=== PATIENT | male | born 1945 | race Caucasian/White ===

== ENCOUNTER 2019-03-24 20:50 | Observation (INO) | payer MEDICARE, BC ==
[2019-03-24 21:08] LABS: ABSOLUTE BASOPHILS # (AUTO) 0.1 10^3/uL (0.0-0.2); ABSOLUTE EOSINOPHILS # (AUTO) 0.1 10^3/uL (0.0-0.6); ABSOLUTE LYMPHOCYTES (AUTO) 3.2 10^3/uL (0.5-4.7); ABSOLUTE MONOCYTES (AUTO) 0.4 10^3/uL (0.1-1.4); ABSOLUTE NEUT (AUTO) 4.1 10^3/uL (1.7-8.2); BASOPHILS % (AUTO) 0.7 % (0-2); EOSINOPHILS % (AUTO) 1.7 % (0-6); HEMATOCRIT 40.8 % (37.9-51.0); HEMOGLOBIN 14.2 g/dL (13.5-17.0); LYMPHOCYTES % (AUTO) 40.5 % (13-45); MEAN CORPUSCULAR HEMOGLOBIN 33.1 pg (27.0-33.4); MEAN CORPUSCULAR HGB CONC 34.8 g/dL (32.0-36.0); MEAN CORPUSCULAR VOLUME 95 fl (80-97); MONOCYTES % (AUTO) 4.8 % (3-13); PLATELET COUNT 291 10^3/uL (150-450); RED BLOOD COUNT 4.29 10^6/uL (4.35-5.55); RED CELL DISTRIBUTION WIDTH 14.3 % (11.5-14.0); SEGMENTED NEUTROPHILS % (AUTO) 52.3 % (42-78); TOTAL CELLS COUNTED % (AUTO) 100 %; WHITE BLOOD COUNT 7.8 10^3/uL (4.0-10.5)
[2019-03-24] MEDS ORDERED: ASPIRIN 81 MG TABLET, CHEWABLE PO ONE (21:12)
--- NOTE | 2019-03-24 21:15 | ER Document Report ---
ED General - General Stated Complaint: CHEST PAIN Time Seen by Provider: 03/24/19 20:58 TRAVEL OUTSIDE OF THE [place] IN LAST 30 DAYS: No - HPI Notes: Patient is a 73-year-old male that presents to the emergency department for chief complaint of chest pain that began about an hour prior to arrival in the ED. Patient states he was sitting down while eating dinner and had sudden onset of a substernal chest pain. He states that it lasted for about 30 minutes total. It radiated up into his left shoulder. He cannot describe the sensation further than it felt sore. He denied any aggravating or relieving factors. He denied associated diaphoresis, nausea/vomiting, and shortness of breath. 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 He has been compliant with medications and denies any missed dosing. Patient states that he is currently feeling back to normal and has no pain. Past Medical History: CAD, PE, DVT, history of thrombocytosis with splenomegaly Past Surgical History: CABG x4 Social History: Denies drug alcohol and tobacco use Family History: Reviewed and noncontributory for presenting illness Allergies: Reviewed, see documented allergy list. REVIEW OF SYSTEMS: CONSTITUTIONAL : No fever No chills No diaphoresis No recent illness EENT: No vision changes No congestion No sore throat CARDIOVASCULAR: chest pain No palpitations RESPIRATORY: No shortness of breath No cough No difficulty breathing GASTROINTESTINAL: No abdominal pain No nausea No vomiting No diarrhea GENITOURINARY: No dysuria No hematuria No difficulty urinating MUSCULOSKELETAL: No back pain Left shoulder pain No arm pain SKIN: No rashes No lesions LYMPHATIC: No swollen, enlarged glands. NEUROLOGICAL: No lightheadedness No headache No weakness No paresthesias PSYCHIATRIC: No anxiety No depression PHYSICAL EXAMINATION: Vital signs reviewed, nursing noted reviewed. GENERAL: Well-appearing, well-nourished and in no acute distress. HEAD: Atraumatic, normocephalic. EYES: Eyes appear normal, extraocular movements intact, sclera anicteric, conjunctiva are normal. ENT: nares patent, oropharynx clear without exudates. Moist mucous membranes. NECK: Normal range of motion, supple without lymphadenopathy LUNGS: No anterior chest wall tenderness breath sounds clear to auscultation bilaterally and equal. No wheezes rales or rhonchi. HEART: Regular rate and rhythm without murmurs ABDOMEN: Soft, nontender, normoactive bowel sounds. No rebound, guarding, or rigidity. No masses appreciated. EXTREMITIES: Nontender, good range of motion, no pitting or edema. NEUROLOGICAL: No focal neurological deficits. Moves all extremities spontaneously Motor and sensory grossly intact on exam. PSYCH: Normal mood, normal affect. SKIN: Warm, Dry, normal turgor, no rashes or lesions noted on exposed skin - Related Data Allergies/Adverse Reactions: acetaminophen [From Vicodin] Allergy (Verified 04/10/15 19:05) codeine Allergy (Verified 03/24/19 21:35) hydrocodone bitartrate [From Vicodin] Allergy (Verified 04/10/15 19:05) Past Medical History - Social History Smoking Status: Never Smoker Family History: Reviewed & Not Pertinent - Past Medical History Cardiac Medical History: Reports: Hx Hypercholesterolemia, Hx Hypertension Past Surgical History: Reports: Hx Open Heart Surgery, Hx Orthopedic Surgery - Immunizations Hx Diphtheria, Pertussis, Tetanus Vaccination: Yes Physical Exam - Vital signs Vitals: Resp BP Pulse Ox 13 156/84 H 95 03/24/19 20:56 03/24/19 20:56 03/24/19 20:56 Course - Re-evaluation Re-evalutation: 03/24/19 21:14 Vitals reviewed. Nursing notes reviewed. Patient is well-appearing and currently asymptomatic. He was ordered aspirin for his complaint of chest pain. Patient has been placed on telemetry monitoring. EKG shows no STEMI. 03/24/19 22:02 Patient's blood work is unremarkable. His initial troponin is negative. Chest x-ray shows no cardiopulmonary disease. Patient has remained asymptomatic while in the emergency room and has not had recurrence of his chest pain or left shoulder pain. His heart score is 5. Patient will be admitted to the hospital for further cardiac evaluation. Care discussed with admitting physician. Laboratory 03/24/19 03/24/19 03/24/19 20:25 20:25 20:25 WBC 7.8 RBC 4.29 L Hgb 14.2 Hct 40.8 MCV 95 MCH 33.1 MCHC 34.8 RDW 14.3 H Plt Count 291 Seg Neutrophils % 52.3 Lymphocytes % 40.5 Monocytes % 4.8 Eosinophils % 1.7 Basophils % 0.7 Absolute Neutrophils 4.1 Absolute Lymphocytes 3.2 Absolute Monocytes 0.4 Absolute Eosinophils 0.1 Absolute Basophils 0.1 Sodium 140.9 Potassium 3.7 Chloride 103 Carbon Dioxide 28 Anion Gap 10 BUN 13 Creatinine 0.74 Est GFR ( Amer) > 60 Est GFR (Non-Af Amer) > 60 Glucose 138 H Calcium 9.2 Total Bilirubin 1.7 H Direct Bilirubin 0.3 Neonat Total Bilirubin Not Reportable Neonat Direct Bilirubin Not Reportable Neonat Indirect Bili Not Reportable AST 29 ALT 24 Alkaline Phosphatase 56 Troponin I < 0.012 Total Protein 6.7 Albumin 4.5 Chest X-Ray 03/24/19 20:59 IMPRESSION: 1. No acute pulmonary findings. 2. Previous sternotomy. - Vital Signs Vital signs: Temp Pulse Resp BP Pulse Ox 98.4 F 11 L 156/82 H 95 03/24/19 20:59 03/24/19 21:01 03/24/19 21:02 03/24/19 21:02 - Laboratory Result Diagrams: 03/24/19 20:25 03/24/19 20:25 Laboratory results interpreted by me: 03/24/19 03/24/19 20:25 20:25 RBC 4.29 L RDW 14.3 H Glucose 138 H Total Bilirubin 1.7 H - EKG Interpretation by Me Additional EKG results interpreted by me: 03/24/19 21:15 Interpreted by myself 2052: Normal sinus rhythm, rate 77, normal axis, PAC, no STEMI Discharge - Discharge Clinical Impression: Chest pain Qualifiers: Chest pain type: unspecified Qualified Code(s): R07.9 - Chest pain, unspecified Condition: Stable Disposition: ADMITTED OBSERVATION Admitting Provider: Rubén (Hospitalist) Unit Admitted: Telemetry
[2019-03-24 21:17] LABS: ALANINE AMINOTRANSFERASE 24 U/L (21-72); ALBUMIN 4.5 g/dL (3.5-5.0); ALKALINE PHOSPHATASE 56 U/L (38-126); ANION GAP 10 (5-19); ASPARTATE AMINO TRANSFERASE 29 U/L (17-59); BILIRUBIN,DIRECT 0.3 mg/dL (0.0-0.4); BILIRUBIN,TOTAL 1.7 mg/dL (0.2-1.3); BLOOD UREA NITROGEN 13 mg/dL (7-20); CALCIUM 9.2 mg/dL (8.4-10.2); CARBON DIOXIDE 28 mmol/L (22-30); CHLORIDE 103 mmol/L (98-107); GLUCOSE 138 mg/dL (75-110); POTASSIUM 3.7 mmol/L (3.6-5.0); TOTAL PROTEIN 6.7 g/dL (6.3-8.2)
--- NOTE | 2019-03-24 21:49 | RADIOLOGY REPORT (SQ) ---
EXAM DESCRIPTION: [facility]: XR CHEST 1 VIEW CLINICAL HISTORY: 73 years Male, CHEST PAIN COMPARISON: None. FINDINGS: Lungs are clear, with no focal infiltrate, pneumothorax, or pleural effusion. Sternal wires are noted. There is mild aortic calcification. Heart size is normal. Bony structures are unremarkable. IMPRESSION: 1. No acute pulmonary findings. 2. Previous sternotomy.
--- NOTE | 2019-03-24 23:20 | PDOC H&P ---
History of Present Illness Admission Date/PCP: 03/24/19 22:11 No local PCP Patient complains of: Chest pain History of Present Illness: BRANDI CASTELLON is a 73 year old male who presents the emergency room with acute onset of chest pain approximately 1 hour prior to his arrival. He admits that just before supper tonight he developed a mild to moderate discomfort that he "felt was indigestion" in his anterior central chest, lasting for approximately 30 minutes, without radiation and resolving spontaneously. A few minutes later he developed a 2 to 3-minute episode of vague discomfort in his left arm and at that point decided to come to the emergency room. He denies other accompanying or associated symptoms. He denies prior similar episodes and has not identified any aggravating or ameliorating factors for his chest pain. In the emergency room he was found to have an EKG and initial cardiac enzymes negative for acute myocardial ischemia or injury. He was subsequently admitted to observation status for further evaluation. Past Medical History Cardiac Medical History: Reports: Atrial Fibrillation, Coronary Artery Disease, Hyperlipidema, Hypertension, Pulmonary Embolism Denies: Congestive Heart Failure, Peripheral Vascular Disease Pulmonary Medical History: Denies: Asthma, Chronic Obstructive Pulmonary Disease (COPD) EENT Medical History: Denies: Cataracts, Ears - Hearing aids Neurological Medical History: Denies: Hemorrhagic CVA, Ischemic CVA, Multiple Sclerosis, Seizures Endocrine Medical History: Denies: Diabetes Mellitus Type 1, Diabetes Mellitus Type 2, Hyperthyroidism, Hypothyroidism Renal/ Medical History: Denies: Chronic Kidney Disease, Nephrolithiasis Malignancy Medical History: Reports: None GI Medical History: Denies: Cirrhosis, Crohn's Disease, Gastroesophageal Reflux Disease, Hepatitis, Hiatal Hernia, Ulcerative Colitis Musculoskeltal Medical History: Denies: Arthritis, Fibromyalgia Skin Medical History: Denies: Eczema, Psoriasis Psychiatric Medical History: Denies: Alcohol Dependency, Substance Abuse, Tobacco Dependency Traumatic Medical History: Reports: None Hematology: Reports: Other - Hereditary thrombocytosis with associated coagulopathy Denies: Anemia, Bleeding Tendencies Infectious Medical History: Reports: None Past Surgical History Past Surgical History: Reports: Cardiac Catheterization, Coronary Artery Bypass Graft - X4 grafts, Orthopedic Surgery - Bilateral knee meniscus surgery, bilateral rotator cuff surgeries (Left X2), Other - Cardiac ablation surgery for atrial fibrillation/tachyarrhythmia Social History Information Source: Patient Lives with: Spouse/Significant other Smoking Status: Never Smoker Frequency of Alcohol Use: Social Amount of Alcoholic Beverages Per Day: 1 Scotch Hx Recreational Drug Use: No Drugs: None Hx Prescription Drug Abuse: No - Advance Directive Resuscitation Status: Full Code Surrogate healthcare decision maker:: Pati Castellon Family History Family History: Malignancy, Other - Amyloidosis. denies: CAD, DM, Hypertension Parental Family History Reviewed: Yes Children Family History Reviewed: No Sibling(s) Family History Reviewed.: Yes Medication/Allergy Home Medications: Amlodipine Besylate [Norvasc 5 mg Tablet] 5 mg PO DAILY 04/10/15 Atorvastatin Calcium 40 mg PO DAILY 04/10/15 Hydrochlorothiazide 25 mg PO DAILY 04/10/15 Irbesartan [Avapro] 300 mg PO DAILY 04/10/15 Metoprolol Succinate [Toprol Xl] 50 mg PO BID 04/10/15 Rivaroxaban [Xarelto] 20 mg PO DAILY 04/10/15 Ondansetron [Zofran Odt 4 mg Tablet] 1 - 2 tab PO Q4H PRN #15 tab.rapdis 04/11/15 Allergies/Adverse Reactions: acetaminophen [From Vicodin] Allergy (Verified 04/10/15 19:05) codeine Allergy (Verified 03/24/19 21:35) hydrocodone bitartrate [From Vicodin] Allergy (Verified 04/10/15 19:05) Review of Systems Constitutional: ABSENT: chills, fever(s) Eyes: ABSENT: visual disturbances, other - Eye pain Ears: ABSENT: hearing changes, other - Ear pain Nose, Mouth, and Throat: ABSENT: mouth pain, sore throat Cardiovascular: PRESENT: as per HPI, chest pain. ABSENT: dyspnea on exertion, edema, orthropnea, palpitations Respiratory: ABSENT: cough, dyspnea Gastrointestinal: ABSENT: abdominal pain, constipation, diarrhea, nausea, vomiting Genitourinary: ABSENT: dysuria, hematuria Musculoskeletal: PRESENT: as per HPI, other - Vague pain in left upper extremit y. ABSENT: back pain, joint swelling, muscle weakness Integumentary: ABSENT: pruritus, rash Neurological: ABSENT: confusion, convulsions, focal weakness, memory loss, syncope Psychiatric: ABSENT: anxiety, depression Endocrine: ABSENT: cold intolerance, heat intolerance Hematologic/Lymphatic: ABSENT: easy bleeding, easy bruising Physical Exam Vital Signs: Temp Pulse Resp BP Pulse Ox 98.4 F 11 L 156/82 H 95 03/24/19 20:59 03/24/19 21:01 03/24/19 21:02 03/24/19 21:02 Intake & Output 03/22/19 03/23/19 03/24/19 23:59 23:59 23:59 Weight 72.8 kg General appearance: PRESENT: no acute distress, cooperative Head exam: PRESENT: atraumatic, normocephalic Eye exam: PRESENT: conjunctiva pink. ABSENT: conjunctival injection, scleral icterus Ear exam: PRESENT: normal external ear exam. ABSENT: bleeding, drainage Mouth exam: PRESENT: dry mucosa, neck supple Neck exam: ABSENT: JVD, thyromegaly, tracheal deviation Respiratory exam: PRESENT: clear to auscultation redd, symmetrical, unlabored Cardiovascular exam: PRESENT: RRR. ABSENT: clicks, gallop, rubs Pulses: PRESENT: normal radial pulses, normal dorsalis pedis pul Vascular exam: PRESENT: normal capillary refill. ABSENT: pallor GI/Abdominal exam: PRESENT: normal bowel sounds, organolmegaly - Splenomegaly noted, soft Rectal exam: PRESENT: deferred Extremities exam: ABSENT: joint swelling, pedal edema, tenderness Musculoskeletal exam: PRESENT: full ROM, normal inspection Neurological exam: PRESENT: alert, awake, oriented to person, oriented to place, oriented to time, oriented to situation, CN II-XII grossly intact. ABSENT: motor sensory deficit Psychiatric exam: PRESENT: appropriate affect, normal mood Skin exam: PRESENT: dry, intact, warm. ABSENT: jaundice, rash, urticaria Results Laboratory Results: 03/24/19 20:25 03/24/19 20:25 03/24/19 03/24/19 20:25 20:25 WBC 7.8 RBC 4.29 L Hgb 14.2 Hct 40.8 MCV 95 MCH 33.1 MCHC 34.8 RDW 14.3 H Plt Count 291 Seg Neutrophils % 52.3 Lymphocytes % 40.5 Monocytes % 4.8 Eosinophils % 1.7 Basophils % 0.7 Absolute Neutrophils 4.1 Absolute Lymphocytes 3.2 Absolute Monocytes 0.4 Absolute Eosinophils 0.1 Absolute Basophils 0.1 Sodium 140.9 Potassium 3.7 Chloride 103 Carbon Dioxide 28 Anion Gap 10 BUN 13 Creatinine 0.74 Est GFR ( Amer) > 60 Est GFR (Non-Af Amer) > 60 Glucose 138 H Calcium 9.2 Total Bilirubin 1.7 H AST 29 ALT 24 Alkaline Phosphatase 56 Total Protein 6.7 Albumin 4.5 03/24/19 20:25 Troponin I < 0.012 Impressions: Chest X-Ray 03/24/19 20:59 IMPRESSION: 1. No acute pulmonary findings. 2. Previous sternotomy. Assessment and Plan - Diagnosis (1) Chest pain Qualifiers: Chest pain type: unspecified Qualified Code(s): R07.9 - Chest pain, uns pecified Is this a current diagnosis for this admission?: Yes Plan: Patient will use morphine sulfate 2 to 4 mg IV every 2 hours on a as needed basis for chest pain that does not respond to sublingual nitroglycerin. He will receive sublingual nitroglycerin 0.4 mg every 5 minutes as needed chest pain up to 3 doses as initial treatment of chest pain. Serial cardiac enzymes and EKGs will be performed. (2) CAD (coronary artery disease), [place] coronary artery Qualifiers: [place] vs. transplanted heart: [place] heart Associated angina: angina presence unspecified Qualified Code(s): I25.10 - Atherosclerotic heart disease of [place] coronary artery without angina pectoris Is this a current diagnosis for this admission?: Yes Plan: Patient will be continued on his usual medications for his coronary artery disease during his observation course. Changes will be made only if absolutely necessary. (3) Familial thrombocytosis Is this a current diagnosis for this admission?: Yes Plan: Patient will be continued on his anticoagulant therapy utilizing Xarelto. No further evaluation and or intervention is planned. (4) Chronic anticoagulation Is this a current diagnosis for this admission?: Yes Plan: Patient with continued on his chronic anticoagulation therapy with Xarelto. No further evaluation is planned. - Time Time Spent with patient: 25-34 minutes Medications reviewed and adjusted accordingly: Yes Anticipated discharge: Home - Inpatient Certification Based on my medical assessment, after consideration of the patient's c omorbidities, presenting symptoms, or acuity I expect that the services needed warrant INPATIENT care.: No I certify that my determination is in accordance with my understanding of Medicare's requirements for reasonable and necessary INPATIENT services [42 CFR 412.3e].: No Medical Necessity: Need Close Monitoring Due to Risk of Patient Decompensation, Need For Continuous Telemetry Monitoring, Need for Pain Control
--- NOTE | 2019-03-24 23:46 | EKG REPORT ---
SEVERITY:- NORMAL ECG - SINUS RHYTHM : Confirmed by: Lisa Lal 24-Mar-2019 23:46:10
[2019-03-25 00:12] LABS: FREE T3 3.01 pg/mL (2.77-5.27); FREE T4 (FREE THYROXINE) 1.11 ng/dL (0.78-2.19)
[2019-03-25 03:13] LABS: ABSOLUTE EOSINOPHILS # (AUTO) 0.1 10^3/uL (0.0-0.6); ABSOLUTE LYMPHOCYTES (AUTO) 3.3 10^3/uL (0.5-4.7); ABSOLUTE MONOCYTES (AUTO) 0.4 10^3/uL (0.1-1.4); ABSOLUTE NEUT (AUTO) 3.5 10^3/uL (1.7-8.2); BASOPHILS % (AUTO) 0.6 % (0-2); EOSINOPHILS % (AUTO) 1.9 % (0-6); HEMATOCRIT 39.1 % (37.9-51.0); HEMOGLOBIN 13.5 g/dL (13.5-17.0); LYMPHOCYTES % (AUTO) 44.7 % (13-45); MEAN CORPUSCULAR HEMOGLOBIN 32.8 pg (27.0-33.4); MEAN CORPUSCULAR HGB CONC 34.6 g/dL (32.0-36.0); MEAN CORPUSCULAR VOLUME 95 fl (80-97); PLATELET COUNT 242 10^3/uL (150-450); RED BLOOD COUNT 4.12 10^6/uL (4.35-5.55); RED CELL DISTRIBUTION WIDTH 14.2 % (11.5-14.0); SEGMENTED NEUTROPHILS % (AUTO) 46.8 % (42-78); TOTAL CELLS COUNTED % (AUTO) 100 %; WHITE BLOOD COUNT 7.4 10^3/uL (4.0-10.5)
[2019-03-25 03:34] LABS: ALANINE AMINOTRANSFERASE 25 U/L (21-72); ALBUMIN 3.8 g/dL (3.5-5.0); ALKALINE PHOSPHATASE 50 U/L (38-126); ANION GAP 8 (5-19); ASPARTATE AMINO TRANSFERASE 28 U/L (17-59); BILIRUBIN,DIRECT 0.1 mg/dL (0.0-0.4); BILIRUBIN,TOTAL 1.2 mg/dL (0.2-1.3); BLOOD UREA NITROGEN 15 mg/dL (7-20); CALCIUM 8.7 mg/dL (8.4-10.2); CARBON DIOXIDE 27 mmol/L (22-30); CHLORIDE 107 mmol/L (98-107); CHOLESTEROL 98.38 mg/dL (0-200); CREATINE KINASE 39 U/L (55-170); GLUCOSE 101 mg/dL (75-110); TOTAL PROTEIN 5.9 g/dL (6.3-8.2); TRIGLYCERIDES 66 mg/dL (<150)
[2019-03-25 03:45] LABS: CREATINE KINASE MB 0.55 ng/mL (<4.55); POTASSIUM 3.6 mmol/L (3.6-5.0); TROPONIN I < 0.012 ng/mL
[2019-03-25 03:46] LABS: DIRECT LDL 58 mg/dL (<100)
[2019-03-25] MEDS ORDERED: HYDROCHLOROTHIAZIDE 12.5 MG TABLET PO SCH (08:00)
[2019-03-25] MEDS ORDERED: METOPROLOL SUCCINATE 50 MG TAB.SR.24H PO SCH (10:00)
[2019-03-25] MEDS ORDERED: AMLODIPINE BESYLATE 5 MG TABLET PO SCH (10:00)
[2019-03-25] MEDS ORDERED: LOSARTAN POTASSIUM 50 MG TABLET PO SCH ×2 (10:00→13:00)
[2019-03-25 10:17] LABS: CREATINE KINASE MB 0.55 ng/mL (<4.55)
[2019-03-25 10:25] LABS: TROPONIN I < 0.012 ng/mL
[2019-03-25] MEDS ORDERED: (PENDING PHARMACY ID) (Glucosamine Sulfate Dipot Chlr [Glucosamine] 1,500 MG) PO SCH (12:30)
[2019-03-25] MEDS ORDERED: (PENDING PHARMACY ID) (Irbesartan [Irbesartan] 300 MG) PO SCH (12:30)
[2019-03-25] MEDS ORDERED: TAMSULOSIN HCL 0.4 MG CAP.SR.24H PO SCH (13:00)
[2019-03-25] MEDS ORDERED: SPIRONOLACTONE 25 MG TABLET PO SCH (13:00)
[2019-03-25] MEDS ORDERED: METOPROLOL TARTRATE 25 MG TABLET PO SCH (13:00)
[2019-03-25 13:29] VITALS: BP 144/74
[2019-03-25] MEDS ORDERED: AMLODIPINE BESYLATE 2.5 MG TABLET PO SCH (14:00)
[2019-03-25] MEDS ORDERED: HYDROXYUREA 500 MG CAPSULE PO SCH (14:00)
[2019-03-25] MEDS ORDERED: ASCORBIC ACID 500 MG TABLET PO SCH (14:00)
[2019-03-25] MEDS ORDERED: RIVAROXABAN 10 MG TABLET PO SCH (17:00)
--- NOTE | 2019-03-25 19:29 | ADVANCED CARE ---
- Diagnosis (1) Chest pain Diagnosis Current: Yes (2) CAD (coronary artery disease), [place] coronary artery Diagnosis Current: Yes (3) Familial thrombocytosis Diagnosis Current: Yes (4) Chronic anticoagulation Diagnosis Current: Yes Attendance: The patient, his Pati Taylor and myself. Resuscitation Status: Full Code Discussion: After brief discussion the patient has determined that he wishes to be full code resuscitation status for this hospital stay. Additionally he has named his Pati Taylor as his designated surrogate medical decision maker. Care Planning Goals: 1. Patient will remain full CODE STATUS for the current admission. 2. Pati Taylor is the patient's designated surrogate medical decision- maker. Document(s) Completed: The following entries will be made into the patient's permanent medical record, current medical record and current orders via EMR entry: 1. Patient will remain full CODE STATUS for the current admission. 2. Pati Taylor is the patient's designated surrogate medical decision- maker. Time Spent: 15 minutes
--- NOTE | 2019-03-25 20:33 | EKG REPORT ---
SEVERITY:- NORMAL ECG - SINUS RHYTHM : Confirmed by: Lisa Lal 25-Mar-2019 20:32:10
[2019-03-25] MEDS ORDERED: FINASTERIDE 5 MG TABLET PO SCH (22:00)
[2019-03-25] MEDS ORDERED: (PENDING PHARMACY ID) (Pravastatin Sodium [Pravachol] 40 MG) PO SCH (22:00)
[2019-03-25] MEDS ORDERED: ATORVASTATIN CALCIUM 10 MG TABLET PO SCH (22:00)
[2019-03-25] MEDS ORDERED: ATORVASTATIN CALCIUM 40 MG TABLET PO SCH (22:00)
[2019-03-26] MEDS ORDERED: VIT E AC PO SCH (10:00)
[2019-03-26] MEDS ORDERED: MAGNESIUM AMINO ACID CHELATE PO SCH (10:00)
[2019-03-26] MEDS ORDERED: VIT BCOMP PO SCH (10:00)
[2019-03-26] MEDS ORDERED: [UNRECOGNIZED DRUG - OTHER] PO SCH (10:00)
--- NOTE | 2019-03-26 18:16 | PDOC DISCHARGE SUMMARY ---
General - Admit/Disc Date/PCP Admission Date/Primary Care Provider: 03/24/19 22:11 Discharge Date: 03/25/19 - Additional Information Resuscitation Status: Full Code Discharge Diet: As Tolerated, Cardiac Home Medications: Amlodipine Besylate [Norvasc 2.5 mg Tablet] 2.5 mg PO QAM 03/25/19 Ascorbic Acid [C-500] 500 mg PO QAM 03/25/19 Calcium Carbonate/Vitamin D3 [Calcium 500 mg Chewable Tablet] 1 each PO DAILY 03/25/19 Fe Fum/Vit E AC/Vit Bcomp&C/Mn [B-50 Formula Tablet] 1 each PO QAM 03/25/19 Finasteride [Proscar 5 mg Tablet] 5 mg PO QHS 03/25/19 Glucosamine Sulfate Dipot Chlr [Glucosamine] 1,500 mg PO DAILY 03/25/19 Hydroxyurea 500 mg PO QAM 03/25/19 Irbesartan 300 mg PO QAM 03/25/19 Magnesium Amino Acid Chelate [Magnesium] 600 mg PO QAM 03/25/19 Metoprolol Tartrate [Lopressor 25 mg Tablet] 12.5 mg PO Q12 03/25/19 Pravastatin Sodium [Pravachol] 40 mg PO QHS 03/25/19 Rivaroxaban [Xarelto] 20 mg PO QAM 03/25/19 Spironolactone [Aldactone 25 mg Tablet] 12.5 mg PO QAM 03/25/19 Spironolactone [Aldactone 25 mg Tablet] 12.5 mg PO QAM 03/25/19 Tamsulosin HCl [Flomax 0.4 mg Cap.sr] 40 mg PO QAM 03/25/19 History of Present Illness History of Present Illness: BRANDI CASTELLON is a 73 year old male who presents the emergency room with acute onset of chest pain approximately 1 hour prior to his arrival. He admits that just before supper tonight he developed a mild to moderate discomfort that he "felt was indigestion" in his anterior central chest, lasting for approximately 30 minutes, without radiation and resolving spontaneously. A few minutes later he developed a 2 to 3-minute episode of vague discomfort in his left arm and at that point decided to come to the emergency room. He denies other accompanying or associated symptoms. He denies prior similar episodes and has not identified any aggravating or ameliorating factors for his chest pain. In the emergency room he was found to have an EKG and initial cardiac enzymes negative for acute myocardial ischemia or injury. He was subsequently admitted to observation status for further evaluation. Hospital Course Hospital Course: (1) Chest pain Resolved. Unlikely cardiac. Was admitted to telemetry and started on antiplatelets, beta-blockers, CLAUDETTE, sublingual nitrates, morphine as needed. Troponins negative x3. EKG no acute changes. Very anxious to leave, does not want to stay for a stress test. 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 He is visiting from out of town and very anxious to leave. Denies any anginal symptoms at the time of discharge. P.o. tolerant, ambulatory, having normal bladder and bowel movements. (2) CAD (coronary artery disease), [place] coronary artery Patient was continued on his usual medications for his coronary artery disease during his observation course. (3) Familial thrombocytosis Continued on his anticoagulant therapy utilizing Xarelto. (4) Chronic anticoagulation Continued on his chronic anticoagulation therapy with Xarelto. Physical Exam Vital Signs: Temp Pulse Resp BP Pulse Ox 97.5 F 59 L 20 144/74 H 95 03/25/19 13:23 03/25/19 13:23 03/25/19 13:23 03/25/19 13:23 03/25/19 13:23 Intake & Output 03/25/19 03/26/19 03/27/19 06:59 06:59 06:59 Intake Total 0 Balance 0 Weight 71.7 kg General appearance: PRESENT: no acute distress, well-developed, well-nourished Head exam: PRESENT: atraumatic, normocephalic Eye exam: PRESENT: conjunctiva pink, EOMI, PERRLA. ABSENT: scleral icterus Ear exam: PRESENT: normal external ear exam Mouth exam: PRESENT: moist, tongue midline Neck exam: ABSENT: carotid bruit, JVD, lymphadenopathy, thyromegaly Respiratory exam: PRESENT: clear to auscultation redd. ABSENT: rales, rhonchi, wheezes Cardiovascular exam: PRESENT: RRR. ABSENT: diastolic murmur, rubs, systolic murmur Pulses: PRESENT: normal dorsalis pedis pul Vascular exam: PRESENT: normal capillary refill GI/Abdominal exam: PRESENT: normal bowel sounds, soft. ABSENT: distended, guarding, mass, organolmegaly, rebound, tenderness Rectal exam: PRESENT: deferred Extremities exam: PRESENT: full ROM. ABSENT: calf tenderness, clubbing, pedal edema Neurological exam: PRESENT: alert, awake, oriented to person, oriented to place, oriented to time, oriented to situation, CN II-XII grossly intact. ABSENT: motor sensory deficit Psychiatric exam: PRESENT: appropriate affect, normal mood. ABSENT: homicidal ideation, suicidal ideation Skin exam: PRESENT: dry, intact, warm. ABSENT: cyanosis, rash Results Laboratory Results: 03/25/19 03:01 03/25/19 03:01 03/24/19 03/25/19 03/25/19 20:25 03:01 03:01 Creatine Kinase 39 L CK-MB (CK-2) 0.55 Troponin I < 0.012 < 0.012 03/25/19 03/25/19 09:23 09:23 Creatine Kinase 38 L CK-MB (CK-2) 0.55 Troponin I < 0.012 Impressions: Chest X-Ray 03/24/19 20:59 IMPRESSION: 1. No acute pulmonary findings. 2. Previous sternotomy. Qualifiers - * PATIENT BEING DISCHARGED WITH ANY OF THE FOLLOWING DIAGNOSIS: No Acute Heart Failure - Is this a Heart Failure Patient?: No
== END 2019-03-25 13:45 | disposition home or self-care (01) ==
LOC: ER 20:50 → EH 22:11 → 5 03-25 01:08
PROVIDERS: ADMIT Emergency Medicine; ATTEND Emergency Medicine
DX: R07.89 Other chest pain (principal); I25.10 Atherosclerotic heart disease of native coronary artery without angina pectoris; D47.3 Essential (hemorrhagic) thrombocythemia; M25.512 Pain in left shoulder; E78.5 Hyperlipidemia, unspecified; I10 Essential (primary) hypertension; R16.1 Splenomegaly, not elsewhere classified; Z79.02 Long term (current) use of antithrombotics/antiplatelets; Z95.1 Presence of aortocoronary bypass graft; Z79.899 Other long term (current) drug therapy; Z86.711 Personal history of pulmonary embolism; Z86.718 Personal history of other venous thrombosis and embolism; Z98.890 Other specified postprocedural states; Z84.89 Family history of other specified conditions
CPT/HCPCS: 93005 ×2; 99285; 36415; 84439; 82553; 82550; 83735; 84443; 85025 ×2; 80053 ×2; 84484 ×2; 84481; 80061; 71045; 93010; G0378 ×3; A9270